=== PATIENT | male | born 1990 | race Two or more races ===

== ENCOUNTER 2024-06-21 16:20 | Emergency (ER) | payer MEDICAID, OTHER ==
[~2024-06-21] VITALS: Ht 175.3 cm; Wt 84.1 kg
[2024-06-21 16:51] VITALS: BP 117/69; PULSE 92; RESP 18; TEMP 98
[2024-06-21] MEDS: PENICILLIN V POTASSIUM 500 MG TABLET PO ONE (18:06)
[2024-06-21] MEDS: IBUPROFEN 600 MG TABLET PO ONE (18:06)
[2024-06-21] MEDS: ACETAMINOPHEN 500 MG TABLET PO ONE (18:06)
[2024-06-21] MEDS ORDERED: IBUP-1554 PO (20:13)
[2024-06-21] MEDS ORDERED: PENI500T2 PO (20:13)
== END 2024-06-21 20:36 | disposition home or self-care (01) ==
LOC: EMS 16:20
DX: S01.511A Laceration without foreign body of lip, initial encounter (principal); S05.11XA Contusion of eyeball and orbital tissues, right eye, initial encounter; S40.012A Contusion of left shoulder, initial encounter; Y04.8XXA Assault by other bodily force, initial encounter; Y93.89 Activity, other specified; Y92.89 Other specified places as the place of occurrence of the external cause; Y99.8 Other external cause status
CPT/HCPCS: 71045; 99284